=== PATIENT | male | born 1995 | race Caucasian/White ===

== ENCOUNTER 2018-09-08 11:16 | Emergency (ER) | payer OTHER ==
--- NOTE | 2018-09-08 11:51 | EDM.PDOC ---
ED HPI GENERAL MEDICAL PROBLEM - General Chief Complaint: Neurological Problem Stated Complaint: DIZZY SPELL/RAPID HEART RATE Time Seen by Provider: 09/08/18 11:45 Source of Information: Reports: Patient History Limitations: Reports: No Limitations - History of Present Illness INITIAL COMMENTS - FREE TEXT/NARRATIVE: 23-year-old male presents to the ED for evaluation of dizziness. She was in class this morning at the [facility] when he suddenly developed dizziness lightheadedness and felt like he was going to faint. He got up and left class. He states he felt a little bit off-balance on leaving but went to the school nurse. Apparently there his heart rate was noted to be elevated but no consistent value was identified. Is been ill over the weekend with a cough somewhat productive of yellowish phlegm. Perhaps some mild low-grade fever but no severe chills. He has a rash on his left upper anterior abdominal wall which all has the characteristics of shingles that is been there for about a week. She really wasn't painful was just burning and slightly itchy. He feels better now. Blood pressure orthostatic rodriguez is normal at this time he did eat a minimal breakfast this morning. He has had no nausea vomiting or diarrhea to cause dehydration over the weekend. Onset: Today, Sudden Onset Date: 09/08/18 Onset Time: 11:10 Duration: Minutes: Location: Reports: Generalized ([place] dizzy lightheaded and slightly off balance while seated in class at the [employer] this morning.) Quality: Reports: Other Severity: Moderate (In no pain distal dizzy lightheaded.) Improves with: Reports: Other (Better now.) Worsens with: Reports: Other Context: Reports: Other (Spontaneous occurrence of symptoms of palpitations lightheadedness and dizziness while seated in class.). Denies: Activity ( Standing up seem to make it a bit worse), Exercise, Lifting, Sick Contact, Trauma Associated Symptoms: Reports: Cough, Fever/Chills (Has had a cough with productive yellow sputum over the weekend.), Loss of Appetite, Malaise, Nausea/ Vomiting, Weakness. Denies: Diaphoresis, Headaches ( Perhaps low-grade fever chills), Rash, Seizure, Shortness of Breath, Syncope Treatments BENCH CHEMIST: Reports: Acetaminophen (States coughing was quite bad enough to make him nearly vomited on a few occasions) - Related Data Allergies Allergy/AdvReac Type Severity Reaction Status Date / Time No Known Allergies Allergy Verified 09/08/18 11:47 Home Meds: Home Meds ARIPiprazole [Abilify] 0 mg PO DAILY 09/08/18 [History] Past Medical History Psychiatric History: Reports: Depression Social & Family History - Living Situation & Occupation Living situation: Reports: Single Occupation: Student ED ROS GENERAL - Review of Systems Review Of Systems: See Below Constitutional: Reports: Fever, Malaise, Weakness, Fatigue, Decreased Appetite HEENT: Reports: No Symptoms Respiratory: Reports: Cough. Denies: Shortness of Breath, Wheezing, Pleuritic Chest Pain Cardiovascular: Reports: Chest Pain, Lightheadedness, Palpitations. Denies: Blood Pressure Problem (Central chest discomfort from coughing so much.), Claudication, Dyspnea on Exertion, Edema, Orthopnea Endocrine: Reports: Fatigue (This morning while seated in class.) GI/Abdominal: Reports: Decreased Appetite : Reports: No Symptoms Musculoskeletal: Reports: No Symptoms Skin: Reports: Other (He has a rash on his left upper lateral abdominal wall for the last week. On inspection this appears to be shingles. It is in the drying out phase) Neurological: Reports: No Symptoms Psychiatric: Reports: Depression Hematologic/Lymphatic: Reports: No Symptoms (Is on Abilify for this.) Immunologic: Reports: No Symptoms ED EXAM, DIZZINESS - Physical Exam Exam: See Below Exam Limited By: No Limitations General Appearance: Alert, WD/WN, Anxious, Other (Does feel very mildly warm to palpation.) Eye Exam: Bilateral Eye: Normal Inspection (Mildly anxious.) Ears: Normal TMs Throat/Mouth: Normal Inspection, Normal Lips, Normal Teeth, Normal Oropharynx, Normal Voice Head Exam: Atraumatic, Normocephalic Respiratory/Chest: No Respiratory Distress, Lungs Clear, Normal Breath Sounds, No Accessory Muscle Use Cardiovascular: Normal Peripheral Pulses, Regular Rate, Rhythm, No Edema, No Murmur, No Rub GI/Abdominal: Normal Bowel Sounds, Soft, Non-Tender, No Organomegaly, No Abnormal Bruit Neurological: Alert, Normal Mood/Affect, Normal Dorsiflexion, CN II-XII Intact, Normal Gait, Oriented x 3 Extremities: Normal Inspection, Normal Range of Motion, Non-Tender, No Pedal Edema Psychiatric: Normal Mood, Anxious Skin Exam: Warm, Dry, Intact, Normal Color EKG INTERPRETATION EKG Date: 09/08/18 Time: 12:25 Rhythm: NSR Rate (Beats/Min): 77 [place]: Normal P-Wave: Present QRS: Other (Left ventricular hypertrophy pattern normal for age) ST-T: Other (Diffuse early repolarization pattern) QT: Normal EKG Interpretation Comments: Normal ECG for age. Course - Vital Signs Last Recorded V/S: Last Vital Signs Temp 37.0 C 09/08/18 11:41 Pulse 74 09/08/18 11:41 Resp 20 09/08/18 11:41 BP 108/69 09/08/18 11:41 Pulse Ox 100 09/08/18 11:41 Orthostatic Blood Pressure [ 110/72 Standing] Orthostatic Blood Pressure [ 113/75 Sitting] - Orders/Labs/Meds Orders: Active Orders 24 hr Category Date Time Status EKG Documentation Completion [RC] STAT Care 09/08/18 11:49 Active KETONES,BLOOD [CHEM] Stat Lab 09/08/18 11:46 Ordered Dextrose 5%-0.9% NaCl [Dextrose 5%-Normal Saline] 1,000 Med 09/08/18 12:00 Active ml IV ASDIRECTED Medication Orders Dextrose/Sodium Chloride (Dextrose 5%-Normal Saline) 1,000 mls @ 999 mls/hr IV ASDIRECTED ENRIQUE Last Admin: 09/08/18 12:10 Dose: 999 mls/hr Labs: Laboratory Tests 09/08/18 09/08/18 09/08/18 Range/Units 12:10 12:10 12:10 WBC 8.27 (4.23-9.07) K/mm3 RBC 5.22 (4.63-6.08) M/mm3 Hgb 15.9 (13.7-17.5) gm/L Hct 47.2 (40.1-51.0) % MCV 90.4 (79.0-92.2) fl MCH 30.5 (25.7-32.2) pg MCHC 33.7 (32.2-35.5) g/dl RDW Std Deviation 40.1 (35.1-43.9) fL Plt Count 367 H (163-337) K/mm3 MPV 8.9 L (9.4-12.3) fl Neutrophils % (Manual) 85 H (40-60) % Band Neutrophils % 0 (0-10) % Lymphocytes % (Manual) 11 L (20-40) % Atypical Lymphs % 0 % Monocytes % (Manual) 4 (2-10) % Eosinophils % (Manual) 0 L (0.8-7.0) % Basophils % (Manual) 0 L (0.2-1.2) Platelet Estimate Adequate RBC Morph Comment Normal Sodium 140 (136-145) mEq/L Potassium 3.6 (3.5-5.1) mEq/L Chloride 105 (98-107) mEq/L Carbon Dioxide 26 (21-32) mEq/L Anion Gap 12.6 (5-15) BUN 11 (7-18) mg/dL Creatinine 1.1 (0.7-1.3) mg/dL Est Cr Clr Drug Dosing 110.16 mL/min Estimated GFR (MDRD) > 60 (>60) mL/min BUN/Creatinine Ratio 10.0 L (14-18) Glucose 87 (74-106) mg/dL Calcium 9.3 (8.5-10.1) mg/dL Magnesium 2.3 (1.8-2.4) mg/dl Total Bilirubin 0.5 (0.2-1.0) mg/dL AST 21 (15-37) U/L ALT 37 (16-63) U/L Alkaline Phosphatase 91 (46-116) U/L C-Reactive Protein 0.3 (<1.0) mg/dL Total Protein 8.0 (6.4-8.2) g/dl Albumin 4.1 (3.4-5.0) g/dl Globulin 3.9 gm/dL Albumin/Globulin Ratio 1.1 (1-2) TSH 3rd Generation 0.803 (0.358-3.74) uIU/mL Meds: Medications Generic Name Dose Route Start Last Admin Trade Name Freq PRN Reason Stop Dose Admin Dextrose/Sodium Chloride 1,000 mls @ 999 mls/hr 09/08/18 12:00 09/08/18 12:10 Dextrose 5%-Normal Saline IV 999 mls/hr ASDIRECTED [facility] Administration - Radiology Interpretation Free Text/Narrative:: 23-year-old male presents to the ED for evaluation of acute onset of dizziness lightheadedness and a feeling like he was going to pass out well seated in class at the [employer] this morning. He was aware of palpitations apparently at the time. Her occurred before. He's been mildly ill over the weekend with a paroxysmal productive cough almost to the point of emesis at times. His appetite has not been as good as normal. He had a small amount of breakfast this morning. Orthostatic BPs are normal this morning. Heart rate is 85 in sinus on the monitor at this time. Apparently when he went to the school nurse she identified that he had a tachycardia but no definite number was ever produced. At this time appears to be minimally febrile. Does have a productive sounding cough. Plan influenza screen routine labs one view chest x-ray to be done. TSH will also be ordered. ECG will also be done. IV will be D5 normal saline at open. - Re-Assessments/Exams Free Text/Narrative Re-Assessment/Exam: 09/08/18 12:51 chest x-ray is within normal limits showing no signs of pneumonia. 09/08/18 12:52 White count is 8.27 with 85% neutrophils and no band cells reported. Hemoglobin is 15.9 with hematocrit of 47.2. Platelet count is 367, 000. Influenza screen is negative. 09/08/18 13:09 Chemistry shows a sodium 140 potassium at 3.6. Cord 105 with a bicarbonate 26. And a gap is 12.6 with a BUN 11. Creatinine is 1.1 and GFR remains greater than 60 glucose is 87 with a calcium of 9.3 magnesium 2.3. Liver function normal. C-reactive protein 0.3. TSH was 0.803. All the lab results are is essentially normal. He has remained in sinus rhythm since in the ED. He does appear to have a viral upper respiratory tract infection. Conservative treatment at this time. Suggest home to rest today. May return to school tomorrow 09/08/18 13:16 reexamination patient does appear to have a low-grade fever. He will take some Motrin when he gets home. He has no classes afternoon therefore can go home and rest. Advised plenty of fluids such as Gatorade Powerade this afternoon follow-up if he has any further feelings of palpitations or racing heart. Departure - Departure Time of Disposition: 13:16 Disposition: Home, Self-Care 01 Condition: Fair Clinical Impression: Viral bronchitis, Heart palpitations - Discharge Information *PRESCRIPTION DRUG MONITORING PROGRAM REVIEWED*: Not Applicable *COPY OF PRESCRIPTION DRUG MONITORING REPORT IN PATIENT LETICIA: Not Applicable Referrals: Marixa Linares, FRONT DESK SPECIALIST [Primary Care Provider] - Forms: ED Department Discharge Additional Instructions: Evaluation the emergency room today in regards to you suddenly developing dizziness lightheadedness and a feeling like he might pass out while seated at her desk in class this morning. There is some suggestion by your heart might of been racing at the time you've seen the school nurse but no documentation of how fast it may been going was identified. In the ED it stayed in the 80s and even into the 70s with no signs of arrhythmia identified. ECG tracing is normal. Chest x-ray was completely normal. Lab work also proved to be completely normal including thyroid function and you were negative for influenza at this time. You do have a low-grade fever and I suspect a viral bronchitis. This may been making you feel unwell particularly fever may have dropped her blood pressure transiently. Suggest home just sleep this afternoon. Plenty of fluids such as Gatorade or Powerade to maintain hydration diet as tolerated. May return to school tomorrow. Follow-up of course is indicated if you any further similar events refill your heart is racing Please return to the ED. - My Orders Last 24 Hours: My Active Orders 09/08/18 11:46 KETONES,BLOOD [CHEM] Stat 09/08/18 11:49 EKG Documentation Completion [RC] STAT 09/08/18 12:00 Dextrose 5%-0.9% NaCl [Dextrose 5%-Normal Saline] 1,000 ml IV ASDIRECTED - Assessment/Plan Last 24 Hours: My Active Orders 09/08/18 11:46 KETONES,BLOOD [CHEM] Stat 09/08/18 11:49 EKG Documentation Completion [RC] STAT 09/08/18 12:00 Dextrose 5%-0.9% NaCl [Dextrose 5%-Normal Saline] 1,000 ml IV ASDIRECTED
[2018-09-08] MEDS ORDERED: Dextrose 5%-0.9% NaCl 1,000 ML IV SCH (12:00)
--- NOTE | 2018-09-08 12:30 | CR ---
Chest: Portable view of the chest was obtained. Comparison: No previous chest x-ray. Heart size and mediastinum are normal. Lungs are clear. Bony structures are unremarkable. Impression: 1. Nothing acute is seen on portable chest x-ray. Diagnostic code #1
== END 2018-09-08 13:38 | disposition home or self-care (01) ==
LOC: JD.ED 11:16
DX: J20.8 Acute bronchitis due to other specified organisms (principal); R00.2 Palpitations
CPT/HCPCS: 36415; 71045; 80053; 82009; 83735; 84443; 85007; 85027; 86140; 87804; 93005; 96360; 99284; J7042; 93010

== ENCOUNTER 2020-02-25 20:11 | Emergency (ER) | payer SELFPAY ==
--- NOTE | 2020-02-25 20:59 | EDM.PDOC ---
ED HPI GENERAL MEDICAL PROBLEM - General Stated Complaint: INSIDE OF MOUTH SWOLLEN Time Seen by Provider: 02/25/20 20:20 Source of Information: Reports: Patient History Limitations: Reports: No Limitations - History of Present Illness INITIAL COMMENTS - FREE TEXT/NARRATIVE: Mr. He is a pleasant 24-year-old man with a past medical history significant for Tourette syndrome, diagnosed by a physician in [facility] in 2013. That same physician sends prescriptions for aripiprazole (Abilify) to family members of the patient in [place], and the patient returns to [place] periodically to get the prescription. He now presents the ED stating that from time to time, 8-9 times since 2013, he compulsively bites the inside of his right cheek, causing an injury. He has not been doing this for about a week, and has developed pain and swelling to his right cheek. He states that he sought medical attention for his oral injury only once in the past, in 2013. He states that he was treated with an antibiotic and something to calm his nerves. Here in the ED, the patient is found to be hemodynamically stable, afebrile, saturating 99% on room air. Other than his oral injury, the patient denies having a recent fever, chills, sore throat, ear pain, nasal or sinus congestion, cough, dyspnea, chest pain, palpitations, nausea, vomiting, constipation, diarrhea, abdominal pain, urinary symptoms, recent weight gain or weight loss, recent bloody bowel movements or black bowel movements, recent joint aches, headaches, or rashes. The patient's only physician is his doctor in [facility], whom he last saw in 2013. Right Cheek Pain Score (Numeric/FACES): 8 - Related Data Allergies Allergy/AdvReac Type Severity Reaction Status Date / Time No Known Allergies Allergy Verified 02/25/20 22:00 Home Meds: Home Meds ARIPiprazole [Abilify] 3.5 mg PO DAILY 09/08/18 [History] Past Medical History Psychiatric History: Reports: Other (See Below) (Tourette's syndrome) Social & Family History - Tobacco Use Smoking Status *Q: Never Smoker - Caffeine Use Caffeine Use: Reports: Coffee, Soda, Tea - Alcohol Use Alcohol Use History: Yes Alcohol Use Frequency: Socially - Recreational Drug Use Recreational Drug Use: No - Living Situation & Occupation Living situation: Reports: Single, Other (with friends) Occupation: Employed ([employer]) ED ROS ENT - Review of Systems Review Of Systems: Comprehensive ROS is negative, except as noted in HPI. ED EXAM, ENT - Physical Exam Exam: See Below Exam Limited By: No Limitations General Appearance: Alert, WD/WN, No Apparent Distress Eye Exam: Bilateral Eye: EOMI, Normal Inspection Ears: Normal External Exam, Normal Canal, Hearing Grossly Normal, Normal TMs Nose: Normal Inspection, Normal Mucousa, No Blood Mouth/Throat: Normal Gums, Normal Lips, Normal Teeth, Other (Large aphthous ulcer noted just anterior to the right palatine tonsil, with mild associated swelling and erythema) Head: Atraumatic, Normocephalic Neck: Normal Inspection, Supple, Non-Tender, Full Range of Motion. No: Lymphadenopathy (L), Lymphadenopathy (R) Course - Vital Signs Last Recorded V/S: Last Vital Signs Temp 36.6 C 02/25/20 21:56 Pulse 100 02/25/20 21:56 Resp 14 02/25/20 21:56 BP 95/72 02/25/20 21:56 Pulse Ox 99 02/25/20 21:56 - Re-Assessments/Exams Free Text/Narrative Re-Assessment/Exam: 02/25/20 20:54 As above, the patient states that he has a history of Tourette syndrome, treated with aripiprazole prescribed by a physician in [facility], who, on occasion, repeatedly bites the inside of his mouth. He has been doing this for the past week, which now appears to have resulted in a large aphthous ulcer to the right posterior of his mouth. While there is local swelling and inflammation, I do not see any signs of an infection, and I am therefore not recommending an antibiotic. Unfortunately, there is no good treatment for aphthous stomatitis. I am recommending that he try to avoid sweet, spicy, acidic, or calorically hot foods, and try to stick with cold and bland foods, such as ice cubes. Aphthous ulcers usually resolve after 2 weeks. I will discharge the patient home with a referral to the clinic, to establish a PCP. Departure - Departure Time of Disposition: 20:59 Disposition: Home, Self-Care 01 Condition: Good Clinical Impression: Aphthous ulcer of mouth - Discharge Information *PRESCRIPTION DRUG MONITORING PROGRAM REVIEWED*: Not Applicable *COPY OF PRESCRIPTION DRUG MONITORING REPORT IN PATIENT LETICIA: Not Applicable Instructions: Stomatitis, [id number] Referrals: Talia Virk NP [Nurse Practitioner] - Forms: ED Department Discharge Additional Instructions: You were seen in the emergency room after developing painful swelling to the back right of your mouth due to repeatedly biting the inside of your cheek due to Tourette's. On examination, you have a large aphthous ulcer (canker sore) to the back right of your mouth, however, no infection is seen, therefore antibiotics were not recommended. We recommend that you avoid sweet, spicy, salty, acidic, and calorically hot foods, as these will make your canker sore feel worse. Try to eat/drink cold and bland foods, such as ice cubes. As discussed, most aphthous ulcers resolve within 2 weeks, and, unfortunately, there are no medicines that have been shown to speed the rate of healing. We recommend that you follow-up with Talia Virk NP, or one of the other dividers in the clinic, to establish a PCP. If any other problems, please do not hesitate to return to the ER. Sepsis Event Note (ED) - Focused Exam Vital Signs: Vital Signs Temp Pulse Resp BP Pulse Ox 02/25/20 21:56 36.6 C 100 14 95/72 99
== END 2020-02-25 21:50 | disposition home or self-care (01) ==
LOC: JD.ED 20:11
DX: K12.0 Recurrent oral aphthae (principal); Z79.899 Other long term (current) drug therapy
CPT/HCPCS: 99282